=== PATIENT | male | born 1990 | race Caucasian/White ===

== ENCOUNTER 2017-04-30 19:45 | Emergency (ER) | payer MEDICAID ==
[~2017-04-30] VITALS: Ht 177.8 cm; Wt 65.0 kg
[2017-04-30 19:46] VITALS: BP 160/79; PULSE 114; RESP 16; TEMP 98.5; O2SAT 100
[2017-04-30] MEDS ORDERED: IBUP1TAB7 PO (20:40)
[2017-04-30] MEDS ORDERED: PENI500T PO (20:40)
[2017-04-30] MEDS ORDERED: MAPA500T13 PO (20:40)
--- NOTE | 2017-04-30 20:46 | PD ---
HPI Chief Complaint: Oral / Dental Pain or Problem Time Seen by Provider: 20:36 Travel History International Travel<30 days: No Contact w/Intl Traveler<30days: No Traveled to known affect area: No History of Present Illness HPI 26-year-old male presents emergency Department with history of impacted wisdom teeth on the left, that has been being treated by his dentist in [place]. Patient is here for the . Patient states he left his medications in the ER. He was taking pen VK, ibuprofen, and Percocet. She denies difficulty swallowing, fever, or other constitutional symptoms. He has no known drug allergies. PFSH Past Medical History Medical History: Denies Significant Hx Tetanus Vaccination: Unknown Influenza Vaccination: Yes Past Surgical History Oral Surgery: Yes (RIGHT BOTTOM WISDOM TOOTH EXTRACTION) Social History Alcohol Use: No Tobacco Use: No Substance Use: No Allergies-Medications (Allergen,Severity, Reaction): Coded Allergies: No Known Allergies (Unverified , 04/30/17) Reported Meds & Prescriptions Reported Meds & Active Scripts Active Mapap Extra Strength (Acetaminophen) 500 Mg Tab 1,000 Mg PO Q6 PRN Ibuprofen 800 Mg Tab 800 Mg PO Q8H PRN Penicillin V Potassium 500 Mg Tab 500 Mg PO Q6H Review of Systems Except as stated in HPI: all other systems reviewed are Neg General / Constitutional: No: Fever Eyes: No: Visual changes HENT: Positive: Dental Difficulties, No: Headaches, Vertigo, Lightheadedness, Sore Throat, Rhinitis, Rhinorrhea, Congestion, Nosebleed, Neck Stiffness, Neck Pain, Earache Cardiovascular: No: Chest Pain or Discomfort Respiratory: No: Shortness of Breath Gastrointestinal: No: Abdominal Pain Genitourinary: No: Dysuria Musculoskeletal: No: Pain Skin: No Rash Neurologic: No: Weakness Psychiatric: No: Depression Endocrine: No: Polydipsia Hematologic/Lymphatic: No: Easy Bruising Physical Exam Narrative GENERAL: Patient appears in mild distress. SKIN: Warm and dry. Normal color. Normal turgor. No signs of cellulitis. HEAD: Atraumatic. Normocephalic. No significant swelling is noted EYES: Pupils equal and round. No scleral icterus. No injection or drainage. ENT: No nasal bleeding or discharge. Mucous membranes pink and moist. Teeth are actually appearing very good condition. No obvious dental abscess. Patient complains of pain with palpation along the left ramus of the jaw. TMs are clear bilaterally. NECK: Trachea midline. Supple and nontender. CARDIOVASCULAR: Regular rate and rhythm. RESPIRATORY: No accessory muscle use. Clear to auscultation. Breath sounds equal bilaterally. GASTROINTESTINAL: Abdomen soft, non-tender, nondistended. Hepatic and splenic margins not palpable. MUSCULOSKELETAL: Extremities without clubbing, cyanosis, or edema. No obvious deformities. NEUROLOGICAL: Awake and alert. No obvious cranial nerve deficits. Motor grossly within normal limits. Five out of 5 muscle strength in the arms and legs. Normal speech. PSYCHIATRIC: Appropriate mood and affect; insight and judgment normal. Data Data Last Documented VS Vital Signs Date Time Temp Pulse Resp B/P (MAP) Pulse Ox O2 Delivery O2 Flow Rate FiO2 04/30/17 19:46 98.5 114 16 160/79 (106) 100 Room Air MDM Medical Decision Making Medical Screen Exam Complete: Yes Emergency Medical Condition: Yes Differential Diagnosis Impacted wisdom teeth. Dental abscess. Dental pain. TMJ. Narrative Course Patient is given Pen-Vee K 500 mg 4 times a day #40. Patient is given ibuprofen 800 mg 3 times a day with food #60. Patient is given Mapap 500 mg 2 tabs every 6 hours when necessary #80. Patient follow with his dentist soon as he returns to [place]. Patient can follow here if symptoms worsen as needed. Diagnosis Primary Impression: Pain, dental Referrals: Dentist Patient Instructions: General Instructions Additional Instructions: Patient is given Pen-Vee K 500 mg 4 times a day #40. Patient is given ibuprofen 800 mg 3 times a day with food #60. Patient is given Mapap 500 mg 2 tabs every 6 hours when necessary #80. Patient follow with his dentist soon as he returns to [place]. Patient can follow here if symptoms worsen as needed. Med/Other Pt SpecificInfo: Prescription(s) given Scripts Acetaminophen (Mapap Extra Strength) 500 Mg Tab 1000 MG PO Q6 Y for PAIN, #80 TAB 0 Refills Prov: Hemanth Rizzo MD 04/30/17 Ibuprofen (Ibuprofen) 800 Mg Tab 800 MG PO Q8H Y for Pain/Inflammation, #60 TAB 0 Refills Prov: Hemanth Rizzo MD 04/30/17 Penicillin V Potassium (Penicillin V Potassium) 500 Mg Tab 500 MG PO Q6H for Infection, #40 TAB 0 Refills Prov: Hemanth Rizzo MD 04/30/17 Disposition: 01 DISCHARGE HOME Condition: Stable Jaciel Modi Apr 30, 2017 20:46
== END 2017-04-30 21:01 | disposition home or self-care (01) ==
LOC: NEPE 19:45
DX: K08.89 Other specified disorders of teeth and supporting structures (principal)
CPT/HCPCS: 99284